=== PATIENT | male | born 1970 | race Caucasian/White ===

== ENCOUNTER 2018-08-09 09:09 | Inpatient (IN) | payer OTHER ==
[2018-08-09] MEDS: NITROGLYCERIN 2% 1 GM OINT PKT TD (09:12)
[2018-08-09] MEDS ORDERED: NITROGLYCERIN (SL) 0.4 MG TAB SL (09:30)
[2018-08-09 09:38] LABS: ADD MAN DIFF? NO; BASOPHIL # 0.1 10^3/ul (0.0-0.1); BASOPHILS % 0.6 % (0.0-2.0); EOSINOPHILS # 0.2 10^3/ul (0.0-0.5); HEMATOCRIT 44.3 % (42.0-52.0); HEMOGLOBIN 15.1 g/dl (14.0-18.0); LYMPHOCYTES # 3.7 10^3/ul (0.8-2.9); LYMPHOCYTES % 39.8 % (15.0-51.0); MEAN CORPUSCULAR HEMOGLOBIN 31.9 pg (29.0-33.0); MEAN CORPUSCULAR HGB CONC 34.1 g/dl (32.0-37.0); MEAN CORPUSCULAR VOLUME 93.5 fl (82.0-101.0); MEAN PLATELET VOLUME 9.8 fl (7.4-10.4); MONOCYTE # 0.6 10^3/ul (0.3-0.9); NEUTROPHIL # 4.8 10^3/ul (1.6-7.5); NEUTROPHILS % 51.2 % (39.0-77.0); PLATELET COUNT 302 10^3/UL (140-415); RED BLOOD COUNT 4.74 10^6/ul (4.70-6.10); RED CELL DISTRIBUTION WIDTH 12.4 % (11.5-14.5)
[2018-08-09 09:38] LABS: WHITE BLOOD COUNT 9.4 10^3/ul (4.8-10.8)
[2018-08-09] MEDS ORDERED: BIVALIRUDIN 250MG /NS 50 ML 50 ML IVPB ×2 (09:40→10:49)
[2018-08-09] MEDS ORDERED: IOHEXOL 350MG/ML 50 ML BTL (09:41)
[2018-08-09] MEDS ORDERED: TICAGRELOR 90 MG TABLET (09:41)
[2018-08-09] MEDS ORDERED: LIDOCAINE 1% (MDV) 20 ML INJ (09:41)
[2018-08-09] MEDS ORDERED: IODIXANOL LOCM 100 ML BTL ×2 (09:41→10:24)
[2018-08-09] MEDS ORDERED: MIDAZOLAM 1 MG/ML 2 ML INJ (09:42)
[2018-08-09 10:03] LABS: ANION GAP 9 (5-13); BLOOD UREA NITROGEN 17 mg/dl (7-20); CALCIUM 9.7 mg/dl (8.4-10.2); CARBON DIOXIDE 22 mmol/L (21-31); CHLORIDE 109 mmol/L (97-110); Estimated GFR > 60 mL/min (>60); GLUCOSE 175 mg/dl (70-220); SODIUM 140 mmol/L (135-144)
[2018-08-09] MEDS ORDERED: NITROGLYCERIN (IC) 100 MCG/ML INJ (10:12)
[2018-08-09 10:15] LABS: TROPONIN-I < 0.012 ng/ml (0.000-0.120)
[2018-08-09] MEDS ORDERED: FENTAnyl 50 MCG/ML VIAL (10:28)
[2018-08-09] MEDS: METOPROLOL (XL) 25 MG TAB PO (11:30)
[2018-08-09] MEDS ORDERED: ALBUTEROL/IPRATROPIUM (NEB) 3 ML AMP HHN (13:00)
[2018-08-09] MEDS ORDERED: HYDROCODONE/APAP (5/325) TAB PO (13:00)
[2018-08-09] MEDS ORDERED: NACL 0.9% 3 ML SYG IV (13:00)
[2018-08-09] MEDS ORDERED: DOCUSATE SODIUM 100 MG CAP PO (13:00)
[2018-08-09] MEDS ORDERED: morphine 2 MG INJ IV (13:00)
[2018-08-09] MEDS ORDERED: MAGNESIUM HYDROXIDE 30ML CUP PO (13:00)
[2018-08-09] MEDS ORDERED: ONDANSETRON 4 MG INJ IV (13:00)
[2018-08-09] MEDS ORDERED: ACETAMINOPHEN 325 MG TAB PO (13:00)
[2018-08-09 13:19] LABS: HEMOGLOBIN A1C 5.2 % (0-5.9)
[2018-08-09 13:39] LABS: FREE T4 (FREE THYROXINE) 0.79 ng/dl (0.64-1.79)
[2018-08-09] MEDS: NICOTINE (21 MG/24 HR) PATCH TRANSDERM (17:00)
[2018-08-09 17:52] LABS: CK INDEX 3.9; CREATINE KINASE 4663 IU/L (23-200)
[2018-08-09] MEDS: ATORVASTATIN 80 MG TAB PO (21:00)
[2018-08-09] MEDS: TICAGRELOR 90 MG TABLET PO (21:02)
[2018-08-09 22:01] LABS: CK INDEX 4.5; CREATINE KINASE 2477 IU/L (23-200)
[2018-08-10 05:12] LABS: ADD MAN DIFF? NO
[2018-08-10 05:17] LABS: BASOPHILS % 0.3 % (0.0-2.0); EOSINOPHILS # 0.1 10^3/ul (0.0-0.5); EOSINOPHILS % 0.7 % (0.0-7.0); HEMATOCRIT 42.3 % (42.0-52.0); HEMOGLOBIN 14.9 g/dl (14.0-18.0); LYMPHOCYTES % 20.7 % (15.0-51.0); MEAN CORPUSCULAR HEMOGLOBIN 32.4 pg (29.0-33.0); MEAN CORPUSCULAR HGB CONC 35.2 g/dl (32.0-37.0); MEAN PLATELET VOLUME 10.2 fl (7.4-10.4); MONOCYTES % 6.7 % (0.0-11.0); NEUTROPHIL # 10.1 10^3/ul (1.6-7.5); NEUTROPHILS % 71.1 % (39.0-77.0); PLATELET COUNT 296 10^3/UL (140-415); RED CELL DISTRIBUTION WIDTH 12.9 % (11.5-14.5)
[2018-08-10 05:17] LABS: WHITE BLOOD COUNT 14.3 10^3/ul (4.8-10.8)
[2018-08-10 05:23] LABS: HEMOGLOBIN A1C 5.1 % (0-5.9)
[2018-08-10 05:48] LABS: ANION GAP 7 (5-13); BLOOD UREA NITROGEN 10 mg/dl (7-20); CALCIUM 9.7 mg/dl (8.4-10.2); CARBON DIOXIDE 23 mmol/L (21-31); CHLORIDE 111 mmol/L (97-110); CREATININE 0.73 mg/dl (0.61-1.24); Estimated GFR > 60 mL/min (>60); GLUCOSE 122 mg/dl (70-220); PHOSPHORUS 3.8 mg/dl (2.5-4.9); POTASSIUM 4.1 mmol/L (3.5-5.1); SODIUM 141 mmol/L (135-144)
[2018-08-10 07:20] LABS: CHOL/HDL RATIO 6.7 RATIO; HDL CHOLESTEROL 43 mg/dl (27-67); LDL CHOLESTEROL,CALCULATED 214 mg/dl; TRIGLYCERIDES 171 mg/dl (0-149)
[2018-08-10 07:20] LABS: CHOLESTEROL 291 mg/dl (100-200)
[2018-08-10] MEDS: METOPROLOL (XL) 25 MG TAB PO (08:40)
[2018-08-10] MEDS: LISINOPRIL 5 MG TAB PO (08:41)
[2018-08-10] MEDS: CLOPIDOGREL 75 MG TAB PO (08:41)
[2018-08-10] MEDS: ASPIRIN 81 MG TAB PO (08:41)
[2018-08-10] MEDS: NICOTINE (21 MG/24 HR) PATCH TRANSDERM (08:44)
[2018-08-10] MEDS: ATORVASTATIN 80 MG TAB PO (21:46)
[2018-08-11] MEDS: ASPIRIN 81 MG TAB PO (06:40)
[2018-08-11] MEDS: CLOPIDOGREL 75 MG TAB PO (07:00)
[2018-08-11] MEDS ORDERED: NITROGLYCERIN (IC) 100 MCG/ML INJ (07:09)
[2018-08-11] MEDS ORDERED: VERAPAMIL 5 MG INJ (07:09)
[2018-08-11] MEDS ORDERED: MIDAZOLAM 1 MG/ML 2 ML INJ (07:09)
[2018-08-11] MEDS ORDERED: BIVALIRUDIN 250MG /NS 50 ML 50 ML IVPB ×3 (07:09→07:42)
[2018-08-11] MEDS ORDERED: FENTAnyl 50 MCG/ML VIAL (07:09)
[2018-08-11] MEDS ORDERED: HEPARIN 1000 UNITS/ML 10 ML INJ (07:09)
[2018-08-11] MEDS ORDERED: CLOPIDOGREL 300 MG TAB (07:24)
[2018-08-11] MEDS ORDERED: IODIXANOL LOCM 100 ML BTL (07:58)
[2018-08-11] MEDS ORDERED: IOHEXOL 350MG/ML 50 ML BTL (07:58)
[2018-08-11] MEDS: NICOTINE (21 MG/24 HR) PATCH TRANSDERM (13:07)
[2018-08-11] MEDS: METOPROLOL (XL) 25 MG TAB PO (13:08)
[2018-08-11 14:50] LABS: ADD MAN DIFF? NO
[2018-08-11 14:54] LABS: WHITE BLOOD COUNT 8.7 10^3/ul (4.8-10.8)
[2018-08-11 14:54] LABS: BASOPHIL # 0.1 10^3/ul (0.0-0.1); BASOPHILS % 0.6 % (0.0-2.0); EOSINOPHILS # 0.3 10^3/ul (0.0-0.5); HEMATOCRIT 37.1 % (42.0-52.0); HEMOGLOBIN 12.8 g/dl (14.0-18.0); LYMPHOCYTES # 2.9 10^3/ul (0.8-2.9); LYMPHOCYTES % 33.1 % (15.0-51.0); MEAN CORPUSCULAR HEMOGLOBIN 32.5 pg (29.0-33.0); MEAN CORPUSCULAR HGB CONC 34.5 g/dl (32.0-37.0); MEAN CORPUSCULAR VOLUME 94.2 fl (82.0-101.0); MEAN PLATELET VOLUME 10.6 fl (7.4-10.4); MONOCYTE # 0.6 10^3/ul (0.3-0.9); MONOCYTES % 6.3 % (0.0-11.0); NEUTROPHIL # 4.9 10^3/ul (1.6-7.5); NEUTROPHILS % 56.7 % (39.0-77.0); PLATELET COUNT 257 10^3/UL (140-415); RED BLOOD COUNT 3.94 10^6/ul (4.70-6.10); RED CELL DISTRIBUTION WIDTH 12.5 % (11.5-14.5)
[2018-08-11 15:15] LABS: ANION GAP 8 (5-13); BLOOD UREA NITROGEN 14 mg/dl (7-20); CALCIUM 8.6 mg/dl (8.4-10.2); CARBON DIOXIDE 23 mmol/L (21-31); CHLORIDE 110 mmol/L (97-110); CREATININE 0.68 mg/dl (0.61-1.24); Estimated GFR > 60 mL/min (>60); GLUCOSE 125 mg/dl (70-220); POTASSIUM 3.9 mmol/L (3.5-5.1); SODIUM 141 mmol/L (135-144)
[2018-08-11] MEDS: ATORVASTATIN 80 MG TAB PO (20:57)
[2018-08-12 06:57] LABS: ADD MAN DIFF? NO
[2018-08-12 06:58] LABS: WHITE BLOOD COUNT 10.3 10^3/ul (4.8-10.8)
[2018-08-12 06:58] LABS: BASOPHIL # 0.1 10^3/ul (0.0-0.1); BASOPHILS % 0.7 % (0.0-2.0); EOSINOPHILS # 0.3 10^3/ul (0.0-0.5); EOSINOPHILS % 2.9 % (0.0-7.0); HEMOGLOBIN 13.2 g/dl (14.0-18.0); LYMPHOCYTES # 2.5 10^3/ul (0.8-2.9); MEAN CORPUSCULAR HEMOGLOBIN 32.7 pg (29.0-33.0); MEAN CORPUSCULAR HGB CONC 34.7 g/dl (32.0-37.0); MEAN CORPUSCULAR VOLUME 94.1 fl (82.0-101.0); MEAN PLATELET VOLUME 10.5 fl (7.4-10.4); MONOCYTE # 0.7 10^3/ul (0.3-0.9); NEUTROPHIL # 6.7 10^3/ul (1.6-7.5); PLATELET COUNT 275 10^3/UL (140-415); RED BLOOD COUNT 4.04 10^6/ul (4.70-6.10); RED CELL DISTRIBUTION WIDTH 12.5 % (11.5-14.5)
[2018-08-12 07:25] LABS: ANION GAP 7 (5-13); BLOOD UREA NITROGEN 11 mg/dl (7-20); CALCIUM 9.2 mg/dl (8.4-10.2); CARBON DIOXIDE 23 mmol/L (21-31); CHLORIDE 111 mmol/L (97-110); CREATININE 0.75 mg/dl (0.61-1.24); Estimated GFR > 60 mL/min (>60); GLUCOSE 123 mg/dl (70-220); POTASSIUM 4.4 mmol/L (3.5-5.1); SODIUM 141 mmol/L (135-144)
[2018-08-12] MEDS: METOPROLOL (XL) 25 MG TAB PO (08:27)
[2018-08-12] MEDS: CLOPIDOGREL 75 MG TAB PO (08:27)
[2018-08-12] MEDS: NICOTINE (21 MG/24 HR) PATCH TRANSDERM (08:27)
[2018-08-12] MEDS: ASPIRIN 81 MG TAB PO (08:27)
== END 2018-08-12 11:15 | disposition home or self-care (01) | DRG 247 ==
LOC: TEL 08-10 14:20 → E/R 09:09 → CCL 09:30 → SDS 09:30 → ICU 11:34 → CCL 12:36 → ICU 12:36
PROC: 027135Z Dilation of Coronary Artery, Two Arteries with Two Drug-eluting Intraluminal Devices, Percutaneous Approach (ICD-10-PCS; principal; 2018-08-09 09:32)
PROC: 027034Z Dilation of Coronary Artery, One Artery with Drug-eluting Intraluminal Device, Percutaneous Approach (ICD-10-PCS; 2018-08-09 09:32)
PROC: 4A023N7 Measurement of Cardiac Sampling and Pressure, Left Heart, Percutaneous Approach (ICD-10-PCS; 2018-08-09 09:32)
PROC: B211YZZ Fluoroscopy of Multiple Coronary Arteries using Other Contrast (ICD-10-PCS; 2018-08-09 09:32)
DX: I21.09 ST elevation (STEMI) myocardial infarction involving other coronary artery of anterior wall (principal); I25.10 Atherosclerotic heart disease of native coronary artery without angina pectoris; F17.210 Nicotine dependence, cigarettes, uncomplicated
CPT/HCPCS: 36415; 71045; 80048; 80061; 82550; 82553; 83036; 83735; 84100; 84439; 84443; 84484; 85025; 87081; 92928; 92929; 93005; 93306; 93458; 97161; 99285-25